=== PATIENT | female | born 1955 | race American Indian/Alaskan Native ===

== ENCOUNTER 2017-09-16 12:14 | Observation (INO) | payer MEDICAID ==
[2017-09-16] MEDS ORDERED: Ondansetron 4 MG Tab.DIS PO PRN (13:25)
[2017-09-16] MEDS ORDERED: Acetaminophen/oxyCODONE 325-5 MG Tab PO PRN (13:25)
[2017-09-16] MEDS ORDERED: Morphine 2 MG/ML Syringe IVPUSH PRN (13:25)
[2017-09-16] MEDS ORDERED: Magnesium Hydroxide 400 MG/5 ML Susp 30 ML Cup PO PRN (13:25)
[2017-09-16] MEDS ORDERED: Acetaminophen 325 MG Tab PO PRN (13:25)
[2017-09-16] MEDS ORDERED: Zolpidem 5 MG Tab PO PRN (13:25)
[2017-09-16] MEDS ORDERED: Budesonide 0.5 MG/2 ML Neb Susp NEB PRN (13:30)
[2017-09-16] MEDS ORDERED: Albuterol/Ipratropium 3.0-0.5 MG/3 ML Neb Soln NEB PRN (13:30)
[2017-09-16] MEDS ORDERED: Aluminum Hydroxide/Magnesium Hydroxide/Simethicone Susp 30 ML Cup PO PRN (13:32)
[2017-09-16 14:16] LABS: CHLORIDE,CL 108 mmol/L (101-111); SODIUM,NA 139 mmol/L (135-145)
[2017-09-16] MEDS: Pantoprazole 40 MG Tab.CR PO SCH ×2 (15:36→21:24)
[2017-09-16] MEDS: Albuterol 6.7 GM Inhaler INH SCH ×2 (17:32→21:25)
--- NOTE | 2017-09-16 21:23 | HP ---
CHIEF COMPLAINT: Chest pain. HISTORY OF PRESENTING ILLNESS: Mrs. Gus Gallardo is a 61-year-old female with a medical history significant for chronic obstructive pulmonary airway disease, severe; history of asthma, chronic hepatitis C, chronic tobacco use, and history of gastritis in the past, initially evaluated in the clinic by Dr. Clark and was noted to have chest pains and some nonspecific ST-T wave changes on the 12-lead EKG with negative cardiac enzymes, so I referred to observation status to rule out any acute coronary syndrome. At this time, the patient claims that the chest pain started early this morning while she was at rest. The chest pain was mostly in the retrosternal area, graded as 4 to 5/10 in intensity, which was sharp in nature, lasting for 5 to 10 minutes. No clear aggravating factors. No clear relieving factors. Associated with mild dyspnea and diaphoresis. Nonradiating type of pain. Denied any fevers or chills in the last few days, but complains of having cough in the last few days. Dry in nature. No sputum production. Denied any abdominal pain. No nausea. No vomiting. No diarrhea in the last few days. Denied any history of similar complaints in the past, but complains of having mild dyspnea on exertion these days. Still continues to smoke. The patient denied any history of chest pains on exertion in the past, but had mild dyspnea on exertion in the past. The patient denied any history of hematemesis, hematochezia, or melenic stools. Normal bowel and bladder habits otherwise. REVIEW OF SYSTEMS: A complete review of system including skin, ear, nose, and throat, cardiovascular system, respiratory system, gastrointestinal system, genitourinary system, hematology, oncology, neurology, allergy, immunology, constitutional were all evaluated and were negative except for the above-said notes. PAST MEDICAL HISTORY: Significant for: 1. Chronic obstructive pulmonary airway disease, severe. 2. Asthma. 3. Chronic hepatitis C. 4. Insomnia. 5. Chronic tobacco use. PAST SURGICAL HISTORY: Significant for: 1. Skin graft. 2. Status post cholecystectomy. 3. Diagnostic colonoscopy and endoscopy with biopsy. 4. . FAMILY HISTORY: Significant for heart disease and arthritis in her sister, liver disease in her brother, diabetes in her maternal and paternal uncle and aunt, and history of cancer in her cousin. SOCIAL HISTORY: Significant for chronic tobacco use for the last 29 years. No history of alcohol intake. No history of drug abuse. ALLERGIES: No known drug allergies. HOME MEDICATIONS: 1. Lamisil 250 mg daily. 2. Aspirin 81 mg daily. 3. Proventil nebulizer every 4 hours as needed. 4. Pulmicort nebulizer 2 times a day. 5. DuoNeb nebulizer 3 times a day. 6. Albuterol inhalation every 6 hours as needed. PHYSICAL EXAMINATION: Vital Signs: Temperature of 97.8, pulse of 59, blood pressure 122/68, respiratory rate of 18, saturating at 98% on room air. General Appearance: The patient is well oriented to time, place, and person. Follows commands spontaneously. Cardiovascular System: S1, S2 heard with normal intensity. No gallops. Respiratory System: Clear to auscultation bilaterally. No wheeze. No crepitations. Abdomen: Soft. Bowel sounds positive. Nontender. No rigidity. No guarding. No rebound tenderness. Extremities: No edema in bilateral lower extremities. Neurology: No gross focal neurological deficits. LABORATORY DATA: No new labs ordered for today. Apparently, the troponin done in the lab is negative. We will order for CBC, BMP, serial cardiac enzymes, 12- lead EKG and a chest x-ray, and urinalysis at this time, and we will follow with the reports. ASSESSMENT: 1. Chest pain, to rule out acute coronary syndrome. 2. Chronic obstructive pulmonary disease. 3. Chronic history of tobacco use. 4. Chronic hepatitis C. PLAN: 1. Chest pain. The patient presents with chest pain. One has to rule out possible acute coronary syndrome given her chronic history of tobacco use. Other differential could include acute bronchitis and musculoskeletal pain and other differential will include acute acid reflux disease exacerbation given her history of gastritis in the past. The patient will be referred to observation status. We will follow serial cardiac enzymes. We will have her on Maalox at this time. The patient does not have any wheeze. We will closely follow the 12-lead EKG. 2. Chronic obstructive pulmonary disease, remains stable. No wheeze noted on the lung exam. We will continue with current inhalation treatment as needed and nebulizer treatment as needed. 3. Gastritis. The patient had history of gastritis, unsure if patient has any acute exacerbation, especially when she continues to smoke. We will have her on Maalox. We will have her on Protonix. We will closely follow. 4. DVT prophylaxis. The patient will be on Lovenox for DVT prophylaxis. 5. Code status. The patient wants to be full code. 6. Discussed in detail with the patient regarding the plan of care. Discussed with Dr. Clark regarding the plan of care. Reviewed the labs and medications. Reviewed the old charts. [facility] /[id number]
[2017-09-17] MEDS: Albuterol 6.7 GM Inhaler INH SCH ×2 (08:53→14:16)
[2017-09-17] MEDS ORDERED: Aspirin 81 MG Tab.EC PO SCH (09:00)
[2017-09-17] MEDS ORDERED: Enoxaparin 40 MG/0.4 ML Syringe SUBCUT SCH (09:00)
[2017-09-17] MEDS ORDERED: TERBINAFINE 250 MG PO SCH (09:00)
[2017-09-17 11:22] VITALS: BP 108/48
--- NOTE | 2017-09-18 00:36 | DISCH ---
ADMITTING DIAGNOSIS: Chest pain to rule out acute coronary syndrome. DISCHARGE DIAGNOSES: 1. Chest pain secondary to possible musculoskeletal versus noncardiac pain. 2. Negative troponins x3. HISTORY OF PRESENTING ILLNESS: Mrs. Paulina Weber is a 61-year-old female with medical history significant for chronic tobacco use, was admitted to the hospital with complaints of chest pain to rule out acute coronary syndrome. Her serial cardiac enzymes remained negative at less than 0.02. Twelve-lead EKG shows some nonspecific ST-T wave changes without any significant ST elevation or ST depression. The patient was closely monitored on the telemetry unit which did not show any acute arrhythmia. The patient remained chest pain free on this admission. Her chest pain was thought to be possibly from musculoskeletal in nature. She continues to use tobacco, so the patient was educated about tobacco cessation. Strongly encouraged her to quit smoking which she understands and verbalized the same. She is discharged home in stable condition. She is advised to follow with her primary care physician in the next 1 week of time and to follow with Cardiology Clinic in the next 1 to 2 weeks. DISCHARGE MEDICATIONS: Include: 1. Aspirin 81 mg daily. 2. Terbinafine 250 mg daily. 3. Albuterol inhalation as needed. PHYSICAL EXAMINATION: Vital Signs: On the day of discharge vitals; temperature of 98.4, pulse of 60, blood pressure 108/48, respiratory rate of 20, saturating at 97% on room air. General Appearance: The patient is well oriented to time, place, and person. Follows commands spontaneously. Cardiovascular: S1 and S2 heard with normal intensity. No gallops. Respiratory System: Clear to auscultation bilaterally. No wheeze. No crepitations. Abdomen: Soft. Bowel sounds positive. Nontender. No rigidity. Extremities: No edema of bilateral lower extremities. Neurology: No gross focal neurological deficit. CONDITION ON ADMISSION: Poor. CONDITION ON DISCHARGE: Stable. ACTIVITY: As tolerated. DIET: Cardiac healthy diet. FOLLOWUP: Follow up with the primary care physician in the next 1 week of time. [facility] /[id number]
--- NOTE | 2017-09-18 13:43 | EKG ---
09/16/2017- RADHA CERNA - A 12-lead EKG shows normal sinus rhythm with a bradycardia with heart rate of 59. No significant ST elevation or ST depression noted on this 12-lead EKG. Nonspecific ST-T wave changes noted on lead V5 and V6. [facility] /[id number]
== END 2017-09-17 14:15 | disposition home or self-care (01) ==
LOC: DL.MS 12:14 → UNDOADMIN 12:14 → DL.MS 13:25 → INTOOBSV 13:25 → EEVIPCON 13:25
PROVIDERS: ADMIT Internal Medicine; ATTEND Internal Medicine
DX: R07.2 Precordial pain (principal); F17.210 Nicotine dependence, cigarettes, uncomplicated; J44.9 Chronic obstructive pulmonary disease, unspecified; B18.2 Chronic viral hepatitis C; G47.00 Insomnia, unspecified; K29.70 Gastritis, unspecified, without bleeding; Z82.49 Family history of ischemic heart disease and other diseases of the circulatory system; Z79.82 Long term (current) use of aspirin; Z79.51 Long term (current) use of inhaled steroids; Z79.899 Other long term (current) drug therapy; Z90.49 Acquired absence of other specified parts of digestive tract; Z98.890 Other specified postprocedural states
CPT/HCPCS: 36415; 80048; 81001; 83735; 84484; 85027; 93005; 96372; A9270; G0378; J1650

== ENCOUNTER 2023-07-31 06:57 | Day surgery (SDC) | payer MEDICARE, MEDICAID ==
[2023-07-31] MEDS ORDERED: Dextrose 5%-0.45% NaCl 1,000 ML IV SCH (07:00)
[2023-07-31] MEDS ORDERED: Midazolam 1 MG/ML 2 ML SDV ONE (08:26)
[2023-07-31] MEDS ORDERED: fentaNYL 100 MCG/2 ML SDV ONE (08:26)
[2023-07-31] MEDS ORDERED: fentaNYL 100 MCG/2 ML SDV IV ONE ×3 (08:26→08:38)
[2023-07-31] MEDS ORDERED: Midazolam 1 MG/ML 2 ML SDV IV ONE ×3 (08:26→08:39)
[2023-07-31 14:22] VITALS: BP 130/56; PULSE 54
== END 2023-07-31 11:05 | disposition home or self-care (01) ==
LOC: DL.ENDO 06:57
PROVIDERS: ATTEND Internal Medicine Gastroenterology
DX: D50.9 Iron deficiency anemia, unspecified (principal); R10.11 Right upper quadrant pain; J47.9 Bronchiectasis, uncomplicated; E11.9 Type 2 diabetes mellitus without complications; E66.09 Other obesity due to excess calories; Z68.28 Body mass index [BMI] 28.0-28.9, adult; Z90.49 Acquired absence of other specified parts of digestive tract
CPT/HCPCS: 43239; 87077; J2250; J3010; J7042; 88305

== ENCOUNTER → 2023-08-01 | Day surgery (SDC) | payer MEDICARE, MEDICAID ==
[~2023-08-01] MED LIST: Dextrose 5%-0.45% NaCl 1,000 ML IV SCH; Midazolam 1 MG/ML 2 ML SDV IV ONE; Midazolam 1 MG/ML 2 ML SDV ONE; fentaNYL 100 MCG/2 ML SDV IV ONE; fentaNYL 100 MCG/2 ML SDV ONE
[2023-08-01 08:40] VITALS: BP 142/67; PULSE 57
== END ==
LOC: DL.ENDO 05:13
PROVIDERS: ATTEND Internal Medicine Gastroenterology
DX: D50.9 Iron deficiency anemia, unspecified (principal); E11.9 Type 2 diabetes mellitus without complications; J44.9 Chronic obstructive pulmonary disease, unspecified; I10 Essential (primary) hypertension; E66.8 Other obesity; Z68.28 Body mass index [BMI] 28.0-28.9, adult; Z90.49 Acquired absence of other specified parts of digestive tract
CPT/HCPCS: 45378; J2250; J3010; J7042